=== PATIENT | male | born 1960 | race Caucasian/White ===

== ENCOUNTER → 2019-08-23 | Outpatient (CLI) | payer BC ==
[~2019-08-23] MED LIST: CIPR-226 PO; HYDR-3875 PO; HYDR-3876 PO; NITR-68 PO; TMSL.4C PO; TRIA1TAB3 PO
--- NOTE | 2019-08-23 17:35 | Diagnostic Imaging Report ---
INDICATION: Right flank pain. EXAMINATION: Single view of the abdomen was obtained. FINDINGS: Since 06/17/2016, there is been apparent migration of calculus into the midportion of the right ureter. This measures approximately 1 cm in size. There is mild/moderate amount of stool throughout the colon which limits evaluation. There are probable punctate calcifications again noted in the lower poles of the kidneys. IMPRESSION: Approximately 1 cm calcification in the right mid abdomen and may represent a stone in the midportion of the right ureter and clinical correlation is recommended. Dictated by: Dictated on workstation # [id number]
--- NOTE | 2019-08-23 17:56 | Diagnostic Imaging Report ---
PROCEDURE: CT abdomen and pelvis without contrast. TECHNIQUE: Multiple contiguous axial images were obtained through the abdomen and pelvis without the use of intravenous contrast. Auto Exposure Controls were utilized during the CT exam to meet ALARA standards for radiation dose reduction. INDICATION: Right flank pain. COMPARISON: Comparison is made study of 06/22/2013. FINDINGS: Unenhanced images of the liver reveal multiple lucencies similar to the previous study likely related to hepatic cysts. No gallbladder, pancreatic or splenic lesion is seen on the noncontrasted study. The right adrenal gland has a normal appearance. There is an approximately 1.5 x 1.8 cm nodule associated with the left adrenal gland. Since this was present on the previous study this likely represents an adenoma. Nonobstructing calculus is seen in the lower pole of the left kidney. There are several punctate calcifications in the upper pole of the right kidney with moderate right hydronephrosis. There is dilatation of the right ureter to the level of an approximately 0.7 x 0.9 cm stone in the midportion of the right ureter. There is no evidence of free fluid within the abdomen or pelvis. No localized inflammation is identified. There is no evidence of bladder stone. Occasional prosthetic calcifications are noted. There is moderate degenerative change in the lumbar spine most pronounced at L5-S1. IMPRESSION: Partially obstructing 0.7 x 0.1 cm mid right ureteric calculus with moderate right hydronephrosis. Additional nonobstructing stones are seen in both kidneys. Dictated by: Dictated on workstation # [id number]
== END ==
LOC: RAD 17:02
PROVIDERS: ATTEND Urology
DX: N13.2 Hydronephrosis with renal and ureteral calculous obstruction (principal)
CPT/HCPCS: 74018; 74176

== ENCOUNTER 2019-08-27 16:00 | Outpatient (CLI) | payer BC ==
[~2019-08-27] VITALS: Ht 182.9 cm; Wt 103.6 kg
[2019-08-27] MEDS ORDERED: TMSL.4C PO (16:45)
[2019-08-28] MEDS ORDERED: TRM50T PO (11:53)
[2019-08-28] MEDS ORDERED: NITR-65 PO (11:53)
== END 2019-08-27 16:57 | disposition home or self-care (01) ==
LOC: PREOP 16:00
PROVIDERS: ATTEND Urology
DX: Z01.818 Encounter for other preprocedural examination (principal)

== ENCOUNTER 2019-08-28 09:07 | Day surgery (SDC) | payer BC ==
[2019-08-28] VITALS (8 sets, daily range): BP systolic 106–142; BP diastolic 74–92
[~2019-08-28] VITALS: Ht 182.9 cm; Wt 103.6 kg
[2019-08-28] MEDS ORDERED: LACTATED RINGERS 1,000 ML IV PRN (09:19)
[2019-08-28] MEDS ORDERED: cefTRIAXone FOR IV USE 1,000 MG in WATER (STERILE) FOR INJECTION 10 ML IV ONE (09:30)
--- NOTE | 2019-08-28 09:33 | Progress Note-Pre Operative ---
Pre-Operative Progress Note H&P Reviewed The H&P was reviewed, patient examined and no changes noted. Date Seen by Provider: Aug 28, 2019 Time Seen by Provider: 09:32 Date H&P Reviewed: Aug 28, 2019 Time H&P Reviewed: 09:32 Pre-Operative Diagnosis: RT URETERAL STONE BISI HAYES MD Aug 28, 2019 09:32
[2019-08-28] MEDS ORDERED: CATHETER FLUSH 10 ML SYR IV PRN (09:45)
[2019-08-28] MEDS ORDERED: MIDAZOLAM 2 MG/2 ML (VERSED) VIAL ONE (09:57)
[2019-08-28] MEDS ORDERED: fentaNYL INJECTION 100 MCG/2 ML AMP ONE (09:57)
--- NOTE | 2019-08-28 10:13 | Progress Note-Post Operative ---
Post-Operative Progess Note Surgeon (s)/Dental Prosthetist (s) Surgeon BISI HAYES MD Dental Prosthetist: NONE Pre-Operative Diagnosis RT URETERAL STONE AND BILATERAL RENAL STONES Post-Operative Diagnosis SAME Procedure & Operative Findings Date of Procedure 08/28/19 Procedure Performed/Findings RT ESWL Anesthesia Type GENERAL Estimated Blood Loss Estimated blood loss (mL): NONE Specimens/Packing Specimens Removed NONE Packing: NONE BISI HAYES MD Aug 28, 2019 10:13
--- NOTE | 2019-08-28 10:17 | Diagnostic Imaging Report ---
EXAMINATION: Abdominal radiographs, single supine view. DATE: August 28, 2019. CLINICAL INDICATION: 58-year-old male, preoperative exam prior to shockwave lithotripsy. COMPARISON: August 23, 2019. COMMENTS: There is a calcification in the right lower quadrant at the level of the L5 vertebral body measuring 9 mm in size which is stable since comparison radiograph and correlates with the stone in the right ureter seen on prior CT of August 23, 2019. There are no abnormally distended gas-filled segments of bowel. IMPRESSION: 1. Redemonstrated 9 mm stone in the right ureter with unchanged appearance and location since August 23, 2019. Dictated by: Dictated on workstation # [id number]
--- NOTE | 2019-08-28 10:20 | Discharge Inst-Urology ---
Discharge Inst-Urology Reconcile Patient Problems Problems Reviewed?: Yes Final Diagnosis RT URETERAL AND BILATERAL RENAL STONES Patient Instructions/Follow Up Plan/Assessment/Instructions Please make appointment to been seen in office Saturday 09/09, KUB prior to it KUB on way home Post ESWL instructions Increase oral fluids for 48 hours and then as needed. Diet and Activity as tolerated. If questions or concerns contact your physician Or seek help at emergency department. BISI HAYES MD Aug 28, 2019 10:20
[2019-08-28] MEDS ORDERED: KETOROLAC 30 MG/ML VIAL ONE (10:23)
[2019-08-28] MEDS ORDERED: LIDOCAINE PF 2% 5 ML (XYLOCAINE) VIAL ONE (10:23)
[2019-08-28] MEDS ORDERED: FUROSEMIDE 40 MG/4 ML INJ (LASIX) ONE (10:23)
[2019-08-28] MEDS ORDERED: ONDANSETRON 4 MG/2 ML (SDV) Z0FRAN ONE (10:23)
[2019-08-28] MEDS ORDERED: SEVOFLURANE (ULTANE) 15 ML INHAL SOLN ONE (10:23)
[2019-08-28] MEDS ORDERED: proPOfol 200 MG/20 ML (DIPRIVAN) VIAL IV ONE (10:23)
[2019-08-28] MEDS ORDERED: DEXAMETHASONE 10 MG/ML (DECADRON) 1 ML VIAL ONE (10:23)
[2019-08-28] MEDS ORDERED: ONDANSETRON 4 MG/2 ML (SDV) Z0FRAN IVP PRN (11:00)
[2019-08-28] MEDS ORDERED: morphine INJ 10 MG/ML 1ML (SYR OR VIAL) IVP ONE (11:00)
[2019-08-28] MEDS ORDERED: NITR-65 PO (11:53)
[2019-08-28] MEDS ORDERED: TRM50T PO (11:53)
--- NOTE | 2019-08-28 13:25 | Anesthesia-General Post-Op ---
General Patient Condition Mental Status/LOC: Same as Preop Cardiovascular: Satisfactory Nausea/Vomiting: Absent Respiratory: Satisfactory Pain: Controlled Complications: Absent Post Op Complications Complications None Follow Up Care/Instructions Patient Instructions None needed. Anesthesia/Patient Condition Patient Condition Patient was seen after the procedure and he was doing well, no complaints, stable vital signs, no apparent adverse anesthesia problems. ALVAREZ ORTIZ DO Aug 28, 2019 13:25
--- NOTE | 2019-08-28 13:49 | Diagnostic Imaging Report ---
INDICATION: Status post ESWL COMPARISON: Earlier same day FINDINGS: Single supine radiograph view of the abdomen was obtained. Large calculus identified projecting superior to the right SI joint is no longer identified. Findings may be on the basis of interval fragmentation consistent with ESWL. No other unexpected radiopaque foreign bodies or extraosseous calcifications are seen. Small bowel loops are nondistended. IMPRESSION: 1. Right ureteral calculus no longer identified consistent with interval ESWL. Dictated by: Dictated on workstation # [id number]
--- NOTE | 2019-08-28 15:26 | OPERATIVE REPORT ---
DATE OF SERVICE: 08/28/2019 PREOPERATIVE DIAGNOSIS: Right proximal ureteral and bilateral renal stones. POSTOPERATIVE DIAGNOSIS: Right proximal ureteral and bilateral renal stones. OPERATION PERFORMED: Right ESWL. SURGEON: Chente Hayes MD ANESTHESIA: General. COMPLICATIONS: None. DESCRIPTION OF PROCEDURE: Under satisfactory general anesthesia, the patient in supine position on the ESWL table, the right proximal ureteral stone was localized. Shocks were delivered at kV of 6 to 7. A total of 3000 shocks completely fragmented the stone that was not visualized anymore. The patient received 40 mg of Lasix and 30 mg of Toradol IV at the end of the procedure. He tolerated the procedure and anesthesia well and was sent to recovery room in stable condition. PLAN: Once he recovered from this procedure, we may go ahead in a couple of weeks or so with the ESWL of the left kidney at the patient's request. The right side, there are too small stones. Job ID: [id number] DocumentID: [id number] Dictated Date: 08/28/2019 10:46:10 Field Producer Date: 08/28/2019 15:25:48 Dictated By: CHENTE HAYES MD
--- OUTSIDE RECORDS SUMMARY | 2019-08-30 09:46 | XMS REPORT | Continuity of Care Document ---
Author Organization Unknown Address Unknown Phone Unavailable Allergies Active Description Code Type Severity Reaction Onset Reported/Identified Relationship to Patient Clinical Status Yes tamsulosin [id number] Drug Allerg y Unknown dizziness 06/04/2016 Yes No Known Drug Allergies [id number] Drug Allergy Unknown N/A 08/28/2019 Medications There is no data. Problems Date Dx Coded Attending Type Code Diagnosis Diagnosed By 09/20/2013 BISI HAYES MD Ot 592.0 CALCULUS OF KIDNEY 05/06/2014 Ot 599.71 05/06/2014 Ot 789.09 05/06/2014 MANDI PEMBERTON MD Ot 592.0 05/06/2014 MANDI PEMBERTON MD Ot 788.20 05/06/2014 Ot 592.0 06/19/2014 Ot 599.71 06/19/2014 Ot 789.09 06/19/2014 MANDI PEMBERTON MD Ot 592.0 06/19/2014 MANDI PEMBERTON MD Ot 788.20 06/19/2014 Ot 592.0 08/19/2015 Ot 592.0 08/20/2015 BISI HAYES MD Ot N20.2 CALCULUS OF KIDNEY WITH CALCULUS OF URET 08/20/2015 BISI HAYES MD Ot Z11.2 ENCOUNTER FOR SCREENING FOR OTHER BACTER 08/28/2015 Ot 599.71 08/28/2015 Ot 789.09 08/28/2015 MANDI PEMBERTON MD Ot 592.0 08/28/2015 MANDI PEMBERTON MD Ot 788.20 08/28/2015 Ot 592.0 08/28/2015 BISI HAYES MD Ot N20.2 08/28/2015 BISI HAYES MD Ot Z01.8 18 08/29/2015 BISI HAYES MD Ot N20.2 CALCULUS OF KIDNEY WITH CALCULUS OF URET 08/29/2015 BISI HAYES MD Ot Z01.8 18 ENCOUNTER FOR OTHER PREPROCEDURAL EXAMIN 09/01/2015 ABIGAIL MACARIO, BISI Ayala Ot N20.2 09/01/2015 ABIGAIL MACARIO, BISI A Ot Z01.8 18 09/01/2015 ABIGAIL MACARIO, BISI A Ot N20.9 09/02/2015 ABIGAIL MACARIO, BISI Ayala Ot N20.0 CALCULUS OF KIDNEY 09/03/2015 ABIGAIL MACARIO, BISI A Ot N20.2 09/03/2015 ABIGAIL MACARIO, BISI A Ot Z01.8 18 09/16/2015 ABIGAIL MACARIO, BISI A Ot N20.9 09/17/2015 ABIGAIL MACARIO, BISI A Ot N20.9 10/01/2015 ABIGAIL MACARIO, BISI A Ot N20.9 01/28/2016 ABIGAIL MACARIO, BISI A Ot N20.9 URINARY CALCULUS, UNSPECIFIED 02/16/2016 ABIGAIL MACARIO, BISI Ayala Ot N20.9 URINARY CALCULUS, UNSPECIFIED 02/16/2016 ABIGAIL MACARIO, BISI A Ot N20.9 URINARY CALCULUS, UNSPECIFIED 04/29/2016 Ot N28.89 OTH ER SPECIFIED DISORDERS OF KIDNEY AND 05/17/2016 Ot N28.89 OTH ER SPECIFIED DISORDERS OF KIDNEY AND 06/04/2016 Ot 592.0 CALC ULUS OF KIDNEY 06/04/2016 ABIGAIL MACARIO, BISI Ayala Ot N20.0 CALCULUS OF KIDNEY 06/04/2016 ABIGAIL MACARIO, BISI Ayala Ot Z01.8 18 ENCOUNTER FOR OTHER PREPROCEDURAL EXAMIN 06/07/2016 ABIGAIL MACARIO, BISI Ayala Ot N20.0 CALCULUS OF KIDNEY 06/07/2016 ABIGAIL MACARIO, BISI Ayala Ot Z01.8 18 ENCOUNTER FOR OTHER PREPROCEDURAL EXAMIN 06/08/2016 Ot 592.0 CALC ULUS OF KIDNEY 06/08/2016 ABIGAIL MACARIO, BISI Ayala Ot N20.0 CALCULUS OF KIDNEY 06/09/2016 ABIGAIL MACARIO, BISI Ayala Ot N20.0 CALCULUS OF KIDNEY 06/23/2016 ABIGAIL MACARIO, BISI Ayala Ot N20.0 CALCULUS OF KIDNEY 06/30/2016 ABIGAIL MACARIO, BISI Ayala Ot N20.0 CALCULUS OF KIDNEY 05/08/2018 BISI HAYES MD Ot N20.9 URINARY CALCULUS, UNSPECIFIED 02/26/2019 Ot 592.0 CALC ULUS OF KIDNEY 02/26/2019 BISI HAYES MD Ot N20.2 CALCULUS OF KIDNEY WITH CALCULUS OF URET 02/26/2019 BISI HAYES MD Ot Z01.8 18 ENCOUNTER FOR OTHER PREPROCEDURAL EXAMIN 02/26/2019 BISI HAYES MD Ot N20.9 URINARY CALCULUS, UNSPECIFIED 02/26/2019 ABIGAIL MACARIO, BISI Ayala Ot N20.9 URINARY CALCULUS, UNSPECIFIED 02/26/2019 Ot N28.89 OT ER SPECIFIED DISORDERS OF KIDNEY AND 02/26/2019 BISI HAYES MD Ot N20.0 CALCULUS OF KIDNEY 02/27/2019 Ot 592.0 CALC ULUS OF KIDNEY 02/27/2019 BISI HAYES MD Ot N20.2 CALCULUS OF KIDNEY WITH CALCULUS OF URET 02/27/2019 BISI HAYES MD Ot Z01.8 18 ENCOUNTER FOR OTHER PREPROCEDURAL EXAMIN 02/27/2019 BISI HAYES MD Ot N20.9 URINARY CALCULUS, UNSPECIFIED 02/27/2019 BISI HAYES MD Ot N20.9 URINARY CALCULUS, UNSPECIFIED 02/27/2019 Ot N28.89 OT ER SPECIFIED DISORDERS OF KIDNEY AND 02/27/2019 BISI HAYES MD Ot N20.0 CALCULUS OF KIDNEY 08/22/2019 BISI HAYES MD Ot N20.2 CALCULUS OF KIDNEY WITH CALCULUS OF URET 08/22/2019 BISI HAYES MD Ot Z01.8 18 ENCOUNTER FOR OTHER PREPROCEDURAL EXAMIN 08/22/2019 BISI HAYES MD Ot N20.9 URINARY CALCULUS, UNSPECIFIED 08/22/2019 BISI HAYES MD Ot N20.9 URINARY CALCULUS, UNSPECIFIED 08/22/2019 Ot N28.89 OT ER SPECIFIED DISORDERS OF KIDNEY AND 08/22/2019 BISI HAYES MD Ot N20.0 CALCULUS OF KIDNEY 08/23/2019 BISI HAYES MD Ot N20.2 CALCULUS OF KIDNEY WITH CALCULUS OF URET 08/23/2019 BISI HAYES MD Ot Z01.8 18 ENCOUNTER FOR OTHER PREPROCEDURAL EXAMIN 08/23/2019 ABIGAIL MACARIO, BISI Ayala Ot N20.9 URINARY CALCULUS, UNSPECIFIED 08/23/2019 ABIGAIL MACARIO, BISI Ayala Ot N20.9 URINARY CALCULUS, UNSPECIFIED 08/23/2019 Ot N28.89 OT ER SPECIFIED DISORDERS OF KIDNEY AND 08/23/2019 BISI HAYES MD Ot N20.0 CALCULUS OF KIDNEY 08/24/2019 ABIGAIL MACARIO, BISI Ayala Ot N13.2 HYDRONEPHROSIS WITH RENAL AND URETERAL C 08/24/2019 BISI HAYES MD Ot N13.2 HYDRONEPHROSIS WITH RENAL AND URETERAL C 08/27/2019 BISI HAYES MD Ot Z01.8 18 ENCOUNTER FOR OTHER PREPROCEDURAL EXAMIN 08/28/2019 BISI HAYES MD Ot Z01.8 18 ENCOUNTER FOR OTHER PREPROCEDURAL EXAMIN 08/28/2019 BISI HAYES MD Ot N20.2 CALCULUS OF KIDNEY WITH CALCULUS OF URET 08/28/2019 BISI HAYES MD Ot Z01.8 18 ENCOUNTER FOR OTHER PREPROCEDURAL EXAMIN 08/28/2019 BISI HAYES MD Ot N20.9 URINARY CALCULUS, UNSPECIFIED 08/28/2019 ABIGAIL MACARIO, BISI Ayala Ot N20.9 URINARY CALCULUS, UNSPECIFIED 08/28/2019 Ot N28.89 OT ER SPECIFIED DISORDERS OF KIDNEY AND 08/28/2019 BISI HAYES MD Ot N20.0 CALCULUS OF KIDNEY 08/28/2019 BISI HAYES MD Ot N13.2 HYDRONEPHROSIS WITH RENAL AND URETERAL C 08/29/2019 BISI HAYES MD Ot N13.2 HYDRONEPHROSIS WITH RENAL AND URETERAL C 08/29/2019 ABIGAIL MACARIO, BISI Ayala Ot E66.9 OBESITY, UNSPECIFIED 08/29/2019 BISI HAYES MD Ot G47.3 3 OBSTRUCTIVE SLEEP APNEA (ADULT) (PEDIATR 08/29/2019 BISI HAYES MD, Ot N20.0 CALCULUS OF KIDNEY 08/29/2019 BISI HAYES MD, Ot N20.1 CALCULUS OF URETER 08/29/2019 BISI HAYES MD Ot Z11.2 ENCOUNTER FOR SCREENING FOR OTHER BACTER 08/29/2019 BISI HAYES MD, Ot Z68.3 0 BODY MASS INDEX (BMI) 30.0-30.9, ADULT 08/29/2019 BISI HAYES MD, Ot Z87.8 91 PERSONAL HISTORY OF NICOTINE DEPENDENCE Procedures There is no data. Results Test Result Range Methicillin resistant Staphylococcus aur eus (MRSA) screening culture - 06/08/16 06:45 Methicillin resistant Staphylococcus aureus (MRSA) scr eening culture NEG NRG Methicillin resistant Staphylococcus aur eus (MRSA) screening culture - 08/28/19 09:25 Methicillin resistant Staphylococcus aureus (MRSA) scr eening culture NEG NRG Encounters ACCT No. Visit Date/Time Discharge Status Pt. Type Provider Facility Loc./Unit Complaint [id number] 08/28/2019 09:07:00 13:50:00 DIS Outpatient BISI HAYES MD Via [facility] SDC RIGHT URETERAL STONE [id number] 08/27/2019 16:00:00 16:57:00 DIS Outpatient BISI HAYES MD [facility] PREOP RIGHT URETERAL STONE [id number] 08/23/2019 17:02:00 23:59:59 CLS Outpatient BISI HAYES MD [facility] RAD RT FLANK PAIN [id number] 02/27/2019 14:00:00 019 14:00:00 CAN Preadmit ZO CANO Via [facility] RAD BICEPS TENDON RUPTURE R T [id number] 06/17/2016 14:36:00 016 23:59:59 CLS Outpatient BISI HAYES MD [facility] RAD LT RENAL STONE [id number] 06/08/2016 06:31:00 016 10:35:00 DIS Outpatient BISI HAYES MD [facility] SDC BILATERAL RENAL STONES [id number] 06/04/2016 05:38:00 13:53:00 DIS Outpatient BISI HAYES MD [facility] PREOP BILATERAL RENAL STONES [id number] 09/15/2015 15:42:00 016 23:59:59 CLS Outpatient BISI HAYES MD [facility] RAD STONES [id number] 09/02/2015 06:30:00 10:50:00 DIS Outpatient BISI HAYES MD Via [facility] BILATERAL STONES [id number] 08/28/2015 05:33:00 15:59:00 DIS Outpatient BISI HAYES MD [facility] PREOP BILATERAL RENAL STONES [id number] 08/28/2015 12:43:00 23:59:59 CLS Outpatient BISI HAYES MD [facility] RAD STONE [id number] 08/20/2015 07:05:00 016 13:03:00 [id number] 08/19/2015 08:44:00 016 23:59:59 CLS Outpatient BISI HAYES MD [facility] PREOP STONES [id number] 06/25/2013 07:50:00 00:01:00 DIS Outpatient BISI HAYES MD [facility] RAD BILARY RENAL STONES [id number] 06/22/2013 08:03:00 23:59:59 CLS Outpatient MANDI PEMBERTON MD [facility] RAD [id number] 09/12/2019 07:30:00 P EN PreadBISI Strauss MD Via [facility] LEFT URETERAL STONE [id number] 04/28/2016 07:51:00 Document Registration [id number] 09/21/2013 00:00:00 Document Registration [id number] 05/24/2011 09:59:00 Document Registration
--- OUTSIDE RECORDS SUMMARY | 2019-08-30 09:46 | XMS REPORT ---
Author Author Jean ROSENBAUM [facility] Address [address] [place] [address] Care Team Providers Care Stem Shaper Name Role Phone MICHELLE ROSENBAUM Unavailable PROBLEMS Unknown Problems ALLERGIES No Known Allergies ENCOUNTERS Encounter Location Date Diagnosis [facility] [address] [facility] [id number] [place] [address] Apr, Allergic contact dermatitis, unspecified trigger L23.9 IMMUNIZATIONS Vaccine Route Administration Date Status DEXAMETHASONE 4MG/ML (PER 1 MG) IM Intramuscular May 17, 2017 Administered DEPO MEDROL 40 MG/ML IM Intramuscular May 17, 2017 Administer ed SOCIAL HISTORY Never Assessed REASON FOR VISIT Rash on bilat arms- cleared brush over the weekend [id number] PLAN OF CARE Activity Details Follow Up prn Reason: VITAL SIGNS Weight 230.4 lbs 2017-05-17 Temperature 97.9 degrees Fahrenheit 2017-05-17 Heart Rate 60 bpm 2017-05-17 Respiratory Rate 18 2017-05-17 Blood pressure systolic 120 mmHg 2017-05-17 Blood pressure diastolic 74 mmHg 2017-05-17 MEDICATIONS No Known Medications RESULTS No Results PROCEDURES Procedure Date Ordered Result Body Site DEPO MEDROL 40 MG/ML May 17, 2017 DEXAMETHASONE 4MG/ML (PER 1 MG) May 17, 2017 THER/PROPH/DIAG INJ, SC/IM May 17, 2017 INSTRUCTIONS MEDICATIONS ADMINISTERED No Known Medications
== END 2019-08-28 13:50 | disposition home or self-care (01) ==
LOC: SDC 09:07
PROVIDERS: ATTEND Urology
DX: N20.1 Calculus of ureter (principal); N20.0 Calculus of kidney; Z11.2 Encounter for screening for other bacterial diseases; G47.33 Obstructive sleep apnea (adult) (pediatric); E66.9 Obesity, unspecified; Z87.891 Personal history of nicotine dependence; Z68.30 Body mass index [BMI] 30.0-30.9, adult
CPT/HCPCS: 74018; 87081

== ENCOUNTER → 2019-09-10 | Outpatient (CLI) | payer BC ==
[~2019-09-10] MED LIST changes: +NITR-65 PO; +TRM50T PO
--- NOTE | 2019-09-10 10:58 | Diagnostic Imaging Report ---
INDICATION: Bilateral renal calculi. TECHNIQUE/COMPARISON: An AP view of the abdomen was obtained with comparison made to the study of 08/28/2019. FINDINGS: There is a moderate amount of stool in the colon which limits evaluation; however, focal calcification projecting over the mid portion of the left kidney is again demonstrated. This measures approximately 0.4 cm in size. There is an approximately 0.5 cm hyperdensity in the region of the lower pole of the right kidney which may represent an additional stone. No definite stone is seen along the course of either ureter. Calcifications in the left hemipelvis are unchanged and likely represent phleboliths. There may be tiny phleboliths in the right hemipelvis as well. IMPRESSION: The limited examination reveals possible bilateral nephrolithiasis; otherwise, no definite urinary tract calculus is identified. Dictated by: Dictated on workstation # [id number]
== END ==
LOC: RAD 10:31
PROVIDERS: ATTEND Urology
DX: N20.2 Calculus of kidney with calculus of ureter (principal)
CPT/HCPCS: 74018